=== PATIENT | male | born 1990 | race American Indian/Alaskan Native ===

== ENCOUNTER 2022-03-24 09:54 | Emergency (ER) | payer SELFPAY ==
[2022-03-24 10:10] VITALS: BP 100/76
[2022-03-24] MEDS ORDERED: IBUPROFEN 800 MG TAB PO ONE (12:53)
--- NOTE | 2022-03-24 12:58 | Emergency Department Report ---
ED General Adult HPI - General Chief complaint: Fever Stated complaint: COVID/FLU SYM Time Seen by Provider: 03/24/22 12:12 Source: patient Mode of arrival: Ambulatory Limitations: No Limitations - History of Present Illness Initial comments: This is a 31-year-old -Chinese male who presents to the emergency room with fever, chills, cough, sore throat, fatigue, and myalgia for 3 to 4 days. Patient states he think he has Covid. Patient states he is taken [id number] Tylenol and NyQuil medication with no improvement in symptoms. Patient admits recent exposure. Denies recent travel or taking a home COVID test. - Related Data Previous Rx's Medication Instructions Recorded Last Taken Type Benzonatate 200 mg PO TID PRN #20 cap 03/24/22 Unknown Rx Cetirizine HCl [Allergy] 10 mg PO DAILY #20 tab 03/24/22 Unknown Rx Fluticasone [Flonase] 1 spray NS QDAY #1 bottle 03/24/22 Unknown Rx Ibuprofen [Motrin 800 MG tab] 800 mg PO ONCE PRN #20 tablet 03/24/22 Unknown Rx Allergies Allergy/AdvReac Type Severity Reaction Status Date / Time No Known Allergies Allergy Unverified 03/24/22 10:10 ED Review of Systems ROS: Stated complaint: COVID/FLU SYM Other details as noted in HPI Constitutional: chills, fever ENT: throat pain, congestion. denies: ear pain Respiratory: cough. denies: shortness of breath, wheezing Cardiovascular: denies: chest pain, palpitations Musculoskeletal: myalgia. denies: back pain, joint swelling, arthralgia Skin: denies: rash, lesions Neurological: denies: headache, weakness, paresthesias ED Past Medical Hx - Past Medical History Previous Medical History?: No - Surgical History Past Surgical History?: No - Medications Home Medications: Home Medications Medication Instructions Recorded Confirmed Last Taken Type Benzonatate 200 mg PO TID PRN #20 cap 03/24/22 Unknown Rx Cetirizine HCl [Allergy] 10 mg PO DAILY #20 tab 03/24/22 Unknown Rx Fluticasone [Flonase] 1 spray NS QDAY #1 bottle 03/24/22 Unknown Rx Ibuprofen [Motrin 800 MG tab] 800 mg PO ONCE PRN #20 tablet 08/19/22 Unknown Rx ED Physical Exam - General Limitations: No Limitations General appearance: alert, in no apparent distress - Head Head exam: Present: atraumatic, normocephalic - ENT ENT exam: Present: mucous membranes moist - Respiratory Respiratory exam: Present: normal lung sounds bilaterally. Absent: respiratory distress - Cardiovascular Cardiovascular Exam: Present: regular rate, normal rhythm. Absent: systolic murmur, diastolic murmur, rubs, gallop - Neurological Exam Neurological exam: Present: alert, oriented X3, normal gait - Psychiatric Psychiatric exam: Present: normal affect, normal mood - Skin Skin exam: Present: warm, dry, intact, normal color. Absent: rash ED Course Vital Signs 03/24/22 10:09 Temperature 102 F H Pulse Rate 99 H Respiratory 18 Rate Blood Pressure 100/76 [Left] O2 Sat by Pulse 99 Oximetry ED Medical Decision Making - Medical Decision Making 31-year-old male who presents to the clinic with symptoms that are susceptible COVID-19. Patient examined by me and stable. No distress noted. Elevated temperature. Patient is otherwise healthy patient with viral symptoms. He denies shortness of breath, chest pain, or weakness. No vocal changes or uvula deviation to be concern for SUSPENSION CORD TIER. There is low suspicion of influenza, pneumonia, strep throat, or sinusitis. Labs and imaging are deferred at this time. Given ibuprofen 800 mg p.o. once while in ER. There are no indications for antibiotics at this time. Will start supportive medication such as cough suppressant. Instructed to continue [id number] cold and flu medications, increase fluid intake, and wash hands frequently. Discharged home stable with strict return instructions. Follow up with Primary Care Provider in 2-3 days. Return to work tomorrow. Critical care attestation.: If time is entered above; I have spent that time in minutes in the direct care of this critically ill patient, excluding procedure time. ED Disposition Clinical Impression: Sore throat (viral), Clinical diagnosis of COVID-19, Fever and chills Disposition: 01 HOME / SELF CARE / HOMELESS Is pt being admited?: No Condition: Stable Instructions: COVID-19 Prescriptions: Cetirizine HCl [Allergy] 10 mg PO DAILY #20 tab Benzonatate 200 mg PO TID PRN #20 cap PRN Reason: Cough Fluticasone [Flonase] 1 spray NS QDAY #1 bottle Ibuprofen [Motrin 800 MG tab] 800 mg PO ONCE PRN #20 tablet PRN Reason: Pain , Severe (7-10) Referrals: ROGE VENTURA MD [Staff Physician] - 3-5 Days [facility] [Provider Group] - 3-5 Days Forms: Work/School Release Form(ED) Time of Disposition: 12:59
== END 2022-03-24 14:00 | disposition home or self-care (01) ==
LOC: ED 09:54
DX: U07.1 COVID-19 (principal); J02.8 Acute pharyngitis due to other specified organisms; B97.89 Other viral agents as the cause of diseases classified elsewhere; Z79.899 Other long term (current) drug therapy
CPT/HCPCS: 99282